=== PATIENT | female | born 1995 | race Two or more races ===

== ENCOUNTER 2020-08-27 23:59 | Emergency (ER) | payer SELFPAY ==
[~2020-08-27] VITALS: Ht 162.6 cm; Wt 60.0 kg
--- NOTE | 2020-08-28 | NUR ---
Patient comes in extremly combactive and spitting. MD at bedside requested restriants and medications. GF at bedside
[2020-08-28] MEDS ORDERED: LORazepam 2 MG/ML, 1ML ONE (00:05)
[2020-08-28] MEDS ORDERED: ZIPRASIDONE 20 MG INJ IM ONE ×2 (00:05→00:30)
[2020-08-28] MEDS ORDERED: ONDANSETRON 2MG/ML, 2ML IVPush ONE (00:30)
[2020-08-28] MEDS ORDERED: LORazepam 2 MG/ML, 1ML IVPush ONE (00:30)
[2020-08-28] MEDS ORDERED: PLEASE ENTER ALLERGIES MC SCH (00:30)
[2020-08-28] MEDS ORDERED: SODIUM CHLORIDE 0.9% 1,000ML IVBOLUS ONE (00:30)
--- NOTE | 2020-08-28 00:30 | NUR ---
Once patient gf left the room, patient noted to be resting at this point. EKG done, patient placed on registered nurse cardiac, and continous oxy. Patient resting at this time will con't to monitor
--- NOTE | 2020-08-28 00:45 | NUR ---
Restraints removed at this time. Patient sleeping, vss
[2020-08-28 00:59] LABS: BASOPHILS % (AUTO) 0 % (0-1); EOSINOPHILS % (AUTO) 0 % (1-7); LYMPHOCYTES % (AUTO) 35 % (22-44); MEAN CORPUSCULAR HEMOGLOBIN 31.8 pg (27.0-34.8); MONOCYTES % (AUTO) 7 % (2-9); NEUTROPHILS % (AUTO) 58 % (42-75); PLATELET COUNT 292 x10^3/uL (130-400); RED BLOOD COUNT 4.35 x10^6/uL (3.82-5.3); RED CELL DISTRIBUTION WIDTH 12.6 % (9.6-15.2)
[2020-08-28 01:00] LABS: ALANINE AMINOTRANSFERASE 33 U/L (12-78); ALBUMIN 3.9 g/dL (3.4-5.0); ANION GAP 7 mmol/L (5-15); CALCIUM 8.4 mg/dL (8.5-10.1); CHLORIDE 113 mmol/L (98-107); MD NO; SALICYLATE LEVEL < 1.7 mg/dL (2.8-20.0)
[2020-08-28 01:05] LABS: ALKALINE PHOSPHATASE 98 U/L (45-117); BILIRUBIN,TOTAL 0.2 mg/dL (0.2-1.0); CREATININE 0.64 mg/dL (0.55-1.02); TOTAL PROTEIN 7.7 g/dL (6.4-8.2)
--- NOTE | 2020-08-28 01:13 | NUR ---
PT RESTING COMFORTABLY IN BED. RESTRAINTS ARE OFF. VSS. APPEARS IN NO ACUTE DISTRESS. WILL CONTINUE TO MONITOR.
[2020-08-28 04:30] VITALS: BP 108/65
--- NOTE | 2020-08-28 06:37 | NUR ---
Cold Rolling Supervisor walked by room, noted that patient was awake. Patient ambulated to restroom with steady gait. Patient d/c. Patient mom called for ride home.
== END 2020-08-28 06:40 | disposition home or self-care (01) ==
LOC: ED 08-28 00:29
DX: G31.2 Degeneration of nervous system due to alcohol (principal); F19.14 Other psychoactive substance abuse with psychoactive substance-induced mood disorder; F10.129 Alcohol abuse with intoxication, unspecified; F41.9 Anxiety disorder, unspecified; R94.31 Abnormal electrocardiogram [ECG] [EKG]; Y90.9 Presence of alcohol in blood, level not specified
CPT/HCPCS: 36415; 71045; 80053; 80307; 84703; 85025; 93005; 96361; 96372; 96374; 99285; J2060; J3486; J7030